=== PATIENT | male | born 1960 | race Caucasian/White ===

== ENCOUNTER 2023-04-07 18:58 | Emergency (ER) | payer OTHER, BC ==
[2023-04-07 19:42] VITALS: BP 123/67; PULSE 51; RESP 16; TEMP 97.8; BMI 25.8
== END 2023-04-07 20:44 | disposition home or self-care (01) ==
LOC: FER 18:58
DX: S60.511A Abrasion of right hand, initial encounter (principal); S60.512A Abrasion of left hand, initial encounter; S63.509A Unspecified sprain of unspecified wrist, initial encounter; R22.33 Localized swelling, mass and lump, upper limb, bilateral; W18.30XA Fall on same level, unspecified, initial encounter
CPT/HCPCS: 73110-TC-LT-FY; 73110-TC-RT-FY; 99283-25